=== PATIENT | male | born 1960 | race Hispanic/Latino ===

== ENCOUNTER → 2022-01-28 | Outpatient (CLI) | payer BC | END | disposition home or self-care (01) | LOC: SHCH 10:57 | PROVIDERS: ATTEND Internal Medicine | DX: I42.9 Cardiomyopathy, unspecified (principal); I51.7 Cardiomegaly; I25.10 Atherosclerotic heart disease of native coronary artery without angina pectoris | CPT/HCPCS: 93306 ==